=== PATIENT | male | born 1990 | race Caucasian/White ===

== ENCOUNTER 2020-12-25 13:09 | Emergency (ER) | payer BC ==
--- NOTE | 2020-12-25 14:07 | EDM.PDOC ---
ED HPI GENERAL MEDICAL PROBLEM - General Chief Complaint: ENT Problem Stated Complaint: FEVER/NUMBNESS IN HANDS AND FEET/SORE THROAT Time Seen by Provider: 12/25/20 13:25 Source of Information: Reports: Patient, RN Notes Reviewed - History of Present Illness INITIAL COMMENTS - FREE TEXT/NARRATIVE: 30 yr old male had onset of sore throat, fever, chills, Au, myalgias 2 days ago, worse today. He also has rash bilat low back, buttocks and proximal post thighs. He did have a neg covid screen 2 days ago, the day his sx started. He has not been coughing. He is not short of breath. Throat Pain Score (Numeric/FACES): 8 - Related Data Allergies Allergy/AdvReac Type Severity Reaction Status Date / Time naproxen Allergy Severe Other Verified 12/25/20 13:37 Home Meds: Home Meds Hydrocodone/Acetaminophen [HYDROcodone-Acetaminophen 5-325 MG] 1 each PO Q6HR PRN #14 tab 12/25/20 [Rx] Losartan [Cozaar] 50 mg PO DAILY 12/25/20 [History] Metoprolol Succinate [Toprol XL] 25 mg PO DAILY 12/25/20 [History] cephALEXin [Cephalexin] 500 mg PO QID #30 capsule 12/25/20 [Rx] gemfibroziL [Gemfibrozil] 600 mg PO BID 12/25/20 [History] Past Medical History Cardiovascular History: Reports: Hypertension - Past Surgical History HEENT Surgical History: Reports: Oral Surgery Musculoskeletal Surgical History: Reports: Arthroscopic Knee, Other (See Below) Other Musculoskeletal Surgeries/Procedures:: tendon reconection of left index finger Social & Family History - Tobacco Use Tobacco Use Status *Q: Never Tobacco User - Caffeine Use Caffeine Use: Reports: Coffee, Tea - Recreational Drug Use Recreational Drug Use: No ED ROS ENT - Review of Systems Review Of Systems: See Below Constitutional: Reports: Fever, Chills HEENT: Reports: Throat Pain Respiratory: Denies: Shortness of Breath, Pleuritic Chest Pain, Cough Cardiovascular: Denies: Chest Pain GI/Abdominal: Reports: Decreased Appetite. Denies: Abdominal Pain, Nausea, Vomiting Musculoskeletal: Reports: Other (generalized myalgias) Skin: Reports: Rash Neurological: Reports: Dizziness, Headache ED EXAM, ENT - Physical Exam Exam: See Below General Appearance: Alert, Mild Distress Nose: Normal Inspection Mouth/Throat: Throat Swelling. No: Tonsillar Exudates Neck: Supple Respiratory/Chest: No Respiratory Distress, Lungs Clear, Normal Breath Sounds Cardiovascular: Regular Rate, Rhythm Extremities: Normal Inspection. No: Pedal Edema, Leg Pain Neurological: Alert, No Motor/Sensory Deficits Skin: Warm, Dry, Other (small erythematous scattered lesions bilat low back, bilat buttocks and proximal post thighs) Course - Vital Signs Last Recorded V/S: Last Vital Signs Temp 97.1 F 12/25/20 13:42 Pulse 80 12/25/20 13:42 Resp 20 12/25/20 13:42 BP 137/97 H 12/25/20 13:42 Pulse Ox 97 12/25/20 13:42 - Orders/Labs/Meds Labs: Laboratory Tests 12/25/20 12/25/20 Range/Units 14:30 14:30 SARS-CoV-2 RNA (SHAUN) Negative (NEGATIVE) Group A Strep (PCR) Not detected (NOT DETECT) - Re-Assessments/Exams Free Text/Narrative Re-Assessment/Exam: 12/25/20 18:31 Covid and strep screen did come back neg. He still may have covid, this is day 3 of his sx. Will start him on cephalexin 500 mg qid for his quite severe pharyngitis. Discharge instr. as documented. Departure - Departure Time of Disposition: 16:16 Disposition: Home, Self-Care 01 Condition: Poor Clinical Impression: Pharyngitis Qualifiers: Pharyngitis/tonsillitis etiology: unspecified etiology Qualified Code(s): J02.9 - Acute pharyngitis, unspecified - Discharge Information Prescriptions: cephALEXin [Cephalexin] 500 mg PO QID #30 capsule Hydrocodone/Acetaminophen [HYDROcodone-Acetaminophen 5-325 MG] 1 each PO Q6HR PRN #14 tab PRN Reason: Pain Instructions: Pharyngitis Referrals: Theresa Huang NP [Primary Care Provider] - Forms: ED Department Discharge Additional Instructions: Rest. Self isolate for now even though your covid screen is still negative. I do recomend you get retested on . Cephalexin 500 mg 4 times daily for 1 week or until gone. Tylenol q 6 hr as needed or hydrocodone if needed for severe pain. Prescriptions has been sent to [facility] on [address]. Follow up clinic if not much better within 4 to 5 days as expected. Return to ED as needed. Sepsis Event Note (ED) - Evaluation Sepsis Screening Result: No Definite Risk - Focused Exam Vital Signs: Vital Signs Temp Pulse Resp BP Pulse Ox 12/25/20 13:42 97.1 F 80 20 137/97 H 97 12/25/20 13:34 97.1 F 80 20 137/97 H 97
== END 2020-12-25 16:34 | disposition home or self-care (01) ==
LOC: JD.ED 13:09
DX: J02.9 Acute pharyngitis, unspecified (principal); I10 Essential (primary) hypertension; Z88.6 Allergy status to analgesic agent; Z79.899 Other long term (current) drug therapy; Z20.822 Contact with and (suspected) exposure to COVID-19
CPT/HCPCS: 87651-QW; 99283; U0002